=== PATIENT | female | born 1960 | race Caucasian/White ===

== ENCOUNTER → 2016-12-26 | Outpatient (CLI) | payer OTHER ==
--- NOTE | 2016-12-31 13:37 | MAM ---
EXAM DESCRIPTION: 3D Screening BILATERAL CLINICAL HISTORY: 56 years, Female, Screening mammogram COMPARISON: November 23, 2015 TECHNIQUE: CC and MLO digital mammograms with 3-D tomosynthesis. No CAD utilized. FINDINGS: The breast parenchyma is heterogeneously dense which may decrease the sensitivity of mammography. There is no dominant mass nor any suspicious microcalcifications. Benign microcalcifications are present. IMPRESSION: BIRAD CATEGORY: 2 BENIGN FOLLOW-UP: Routine mammography screening. Electronically signed by: Raghu Jay MD 12/31/2016 1:35 PM CDT
== END ==
LOC: MAMMO 09:55
PROVIDERS: ATTEND Family Medicine
DX: Z12.31 Encounter for screening mammogram for malignant neoplasm of breast (principal)
CPT/HCPCS: 77063; G0202

== ENCOUNTER → 2017-02-01 | Outpatient (CLI) | payer BC | END | disposition home or self-care (01) | LOC: GMAM 10:47 | PROVIDERS: ATTEND Family Medicine | DX: E89.0 Postprocedural hypothyroidism (principal) ==

== ENCOUNTER → 2017-03-05 | Outpatient (CLI) | payer BC | END | disposition home or self-care (01) | LOC: GMAM 10:38 | PROVIDERS: ATTEND Family Medicine | DX: E89.0 Postprocedural hypothyroidism (principal) ==

== ENCOUNTER → 2017-04-24 | Outpatient (CLI) | payer BC | END | disposition home or self-care (01) | LOC: GMAM 10:33 | PROVIDERS: ATTEND Family Medicine | DX: E89.0 Postprocedural hypothyroidism (principal) ==

== ENCOUNTER → 2017-06-06 | Outpatient (CLI) | payer BC | END | disposition home or self-care (01) | LOC: GMAM 10:27 | PROVIDERS: ATTEND Family Medicine | DX: E89.0 Postprocedural hypothyroidism (principal) ==

== ENCOUNTER → 2017-07-16 | Outpatient (CLI) | payer BC | LOC: GMAM 15:49 | PROVIDERS: ATTEND Family Medicine | DX: E89.0 Postprocedural hypothyroidism (principal) ==

== ENCOUNTER → 2017-08-14 | Outpatient (CLI) | payer BC | LOC: GMAM 10:45 | PROVIDERS: ATTEND Family Medicine | DX: E89.0 Postprocedural hypothyroidism (principal); E55.9 Vitamin D deficiency, unspecified; E78.5 Hyperlipidemia, unspecified ==

== ENCOUNTER → 2017-08-21 | Outpatient (CLI) | payer BC | END | disposition home or self-care (01) | LOC: GMAM 14:23 | PROVIDERS: ATTEND Family Medicine | DX: E89.0 Postprocedural hypothyroidism (principal); E53.8 Deficiency of other specified B group vitamins ==

== ENCOUNTER → 2017-11-14 | Outpatient (CLI) | payer BC | LOC: GMAM 15:12 | PROVIDERS: ATTEND Family Medicine | DX: E89.0 Postprocedural hypothyroidism (principal) ==

== ENCOUNTER → 2018-02-13 | Outpatient (CLI) | payer BC ==
--- NOTE | 2018-02-14 10:21 | MAM ---
EXAM DESCRIPTION: 3D Screening BILATERAL : Digital Mammography. CLINICAL HISTORY: 57 years Female SCREENING . No complaints. No personal history of breast cancer. Remote family history of breast cancer. Childbirth. Postmenopausal 27 years. Has taken HRT less than 5 years ago but not currently. COMPARISON: Bilateral screening digital breast tomosynthesis 12/26/2016. TECHNIQUE: Bilateral CC and MLO projection full-field images, Digital tomosynthesis mammographic technique. Bilateral digital 2-D full-field MLO images. CAD not utilized. FINDINGS: The breast parenchymal density pattern is: Heterogeneously dense breast tissue, which may obscure small masses. No skin thickening or nipple retraction. Solitary microcalcifications predominantly in the left breast. No new focal, stellate mass or density, focal asymmetry , and no suspicious microcalcifications bilaterally. Stable mammograms compared to prior study. IMPRESSION: Benign exam. BIRAD CATEGORY: 2 BENIGN FINDINGS. RECOMMENDATIONS: FOLLOW UP: Routine digital bilateral screening, one year interval from January 2018. Written communication explaining the IMPRESSION and follow-up, will be mailed to the patient and referring health care provider. According to the [employer], yearly mammograms are recommended starting at age 40 and continuing as long as a woman is in good health. Any breast change noted on a breast self-exam should be reported promptly to the patient's healthcare provider. Breast MRI is recommended for women with an approximately 20-25% or greater lifetime risk of breast cancer, including women with a strong family history of breast or ovarian cancer and women who have been treated for Hodgkin's disease. A negative mammographic report should not delay tissue diagnosis in patients with significant clinical history or physical findings. Extremely dense breast tissue limits the sensitivity of digital mammography. Electronically signed by: King Kyle MD 02/14/2018 10:20 AM CDT
== END ==
LOC: MAMMO 14:30
PROVIDERS: ATTEND Family Medicine
DX: Z12.31 Encounter for screening mammogram for malignant neoplasm of breast (principal)

== ENCOUNTER 2018-03-20 01:57 | Emergency (ER) | payer BC ==
--- NOTE | 2018-03-20 03:27 | CT ---
EXAM DATE: 03/20/2018 2:27 AM CDT. PROCEDURE: CT NECK WITH IV CONTRAST. INDICATION: throat fullness, history of thyroid neoplasia. COMPARISON: None. TECHNIQUE: Axial CT images of the neck were obtained after administration of intravenous contrast. Coronal and sagittal reformats were also obtained. This exam was performed according to our departmental dose-optimization program which includes use of Automated Exposure Control, adjustment of the mA and/or kV according to patient size and/or use of iterative reconstruction technique. FINDINGS: The visualized intracranial contents are unremarkable. The major neck vessels demonstrate normal opacification. Partial opacification of the right maxillary sinus. The mastoid air cells are clear. Enlarged lingual tonsils. The palatine tonsils and the adenoids are unremarkable. No lymphadenopathy. Unremarkable major salivary glands. The thyroid is surgically absent. Lung apices are clear. No acute osseous abnormality. IMPRESSION: Enlarged lingual tonsils. This may be reactive or secondary to neoplasm. Outpatient ENT evaluation or short-term follow-up in three months is recommended. Electronically signed by: Patrick Barillas MD 03/20/2018 3:26 AM CDT
--- NOTE | 2018-03-20 04:01 | ED.PDOC ---
History of Present Illness - General Chief Complaint: GI Problem Stated Complaint: constricting throat Time Seen by Provider: 03/20/18 02:18 Source: patient Exam Limitations: no limitations - History of Present Illness Initial Comments: Patient presents with a fullness in her throat for several months. It has been getting worse. Tonight, she was eating and she could not swallow all of her food. She can swallow saliva but it is difficult for her to swallow a full cup of water or solid food. 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 No other complaints. Timing/Duration: changing over time Severity: moderate Improving Factors: nothing Worsening Factors: eating Associated Symptoms: denies symptoms Allergies/Adverse Reactions: Allergies NO KNOWN ALLERGY Allergy (Verified 03/20/18 04:35) Home Medications: Ambulatory Orders Acetaminophen W/ Codeine [Tylenol W/ CODEINE #3] 1 ea PO Q4H PRN #12 04/24/14 Ibuprofen [Motrin] 600 mg PO TID PRN #15 tab 04/24/14 Levothyroxine Sodium [Synthroid] 0.125 mg PO 0700 04/24/14 Prednisone [Deltasone] 20 mg PO DAILY #5 tab 03/20/18 Review of Systems - Review of Systems Constitutional: States: no symptoms reported EENTM: States: see HPI Respiratory: States: no symptoms reported Cardiology: States: no symptoms reported Gastrointestinal/Abdominal: States: no symptoms reported Genitourinary: States: no symptoms reported Musculoskeletal: States: no symptoms reported Skin: States: no symptoms reported Neurological: States: no symptoms reported Endocrine: States: no symptoms reported Hematologic/Lymphatic: States: no symptoms reported Past Medical History (General) - Patient Medical History Hx Seizures: No Hx Stroke: No Hx Dementia: No Hx Asthma: No Hx of COPD: No Hx Cardiac Disorders: No Hx Congestive Heart Failure: No Hx Pacemaker: No Hx Hypertension: No Hx Thyroid Disease: Yes - thyroidectomy Hx Diabetes: No Hx Gastroesophageal Reflux: No Hx Renal Disease: No Hx Cancer: No Hx of HIV: No Hx Hepatitis C: No Hx MRSA: No Surgical History: Hysterectomy, other - Vaccination History Hx Tetanus, Diphtheria Vaccination: No Hx Influenza Vaccination: No Hx Pneumococcal Vaccination: No - Social History Hx Tobacco Use: No Hx Chewing Tobacco Use: No Hx Alcohol Use: Yes - occ Hx Substance Use: No Hx Substance Use Treatment: No Hx Depression: No Hx Physical Abuse: No Hx Emotional Abuse: No Hx Suspected Abuse: No - Female History Patient : No Family Medical History - Family History Father Living Status: Still Living Hx Cardiac Disease: Yes Paternal Grandparents Living Status: Still Living Hx Family Diabetes: Yes Hx Family Cancer: Yes - breast cancer Physical Exam - Physical Exam General Appearance: Alert Eye Exam: bilateral normal Ears, Nose, Throat: other - Normal except mild TTP at anterior trachea Neck: non-tender, full range of motion, supple Respiratory: lungs clear, normal breath sounds Cardiovascular/Chest: normal peripheral pulses, regular rate, rhythm, no edema Gastrointestinal/Abdominal: normal bowel sounds, non tender Back Exam: normal inspection, no CVA tenderness Extremity: normal range of motion, non-tender, normal inspection 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, no motor/sensory deficits, alert, normal mood/affect, oriented x 3 Skin Exam: normal color Lymphatic: no adenopathy Progress - Progress Progress: 03/20/18 04:02 Laboratory Tests 03/20/18 03/20/18 03/20/18 02:24 02:24 02:25 WBC 8.4 RBC 5.03 Hgb 14.9 Hct 45.3 MCV 90.1 MCH 29.6 MCHC 32.8 L RDW 14.0 Plt Count 305 MPV 8.1 Absolute Neuts (auto) 5.30 Absolute Lymphs (auto) 2.40 Absolute Monos (auto) 0.50 Absolute Eos (auto) 0.10 Absolute Basos (auto) 0.10 Neutrophils % 63.0 Lymphocytes % 28.7 Monocytes % 6.2 Eosinophils % 1.3 Basophils % 0.8 Sodium 139 Potassium 3.8 Chloride 107 Carbon Dioxide 20 L Anion Gap 15.8 BUN 27 H Creatinine 1.12 BUN/Creatinine Ratio 24.1 H Random Glucose 137 H Serum Osmolality 284.8 Calcium 9.6 Total Bilirubin 0.6 AST 23 ALT 26 Alkaline Phosphatase 69 Creatine Kinase 66 CK-MB (CK-2) 1.0 CK-MB (CK-2) % Not Reportable Troponin I < 0.02 Serum Total Protein 7.7 Albumin 4.0 Globulin 3.7 H Albumin/Globulin Ratio 1.1 Thyroxine (T4) 11.79 CT of the soft tissues of the neck showed enlarge lingual lymph nodes and the radiologist suggested follow up with ENT to investigate whether this is reactive or due to neoplasm. Due to her history, she was given the contact information for her former ENT in [place] so she could contact him tomorrow. She was treated with a solumedrol injection and five day course for the LAD and Toradol/phenergan for a headache. Follow up instructions given. Questions were elicited and answered. The patient voiced understanding and agreement with the plan. 03/20/18 05:23 CT head was negative for mass or bleed. Departure - Departure Clinical Impression: LAD (lymphadenopathy), Headache Disposition: Discharge to Home or Self Care Condition: Fair Departure Forms: ED Discharge - Pt. Copy, Patient Portal Self Enrollment Diet: resume usual diet Activity: increase activity as tolerated Referrals: Moise Guajardo MD [Primary Care Provider] - 1-2 Weeks Prescriptions: Prednisone [Deltasone] 20 mg PO DAILY #5 tab Home Medications: Ambulatory Orders Acetaminophen W/ Codeine [Tylenol W/ CODEINE #3] 1 ea PO Q4H PRN #12 04/24/14 Ibuprofen [Motrin] 600 mg PO TID PRN #15 tab 04/24/14 Levothyroxine Sodium [Synthroid] 0.125 mg PO 0700 04/24/14 Prednisone [Deltasone] 20 mg PO DAILY #5 tab 03/20/18 Additional Instructions: See Dr. Dean within the next week. Take prescriptions as directed. Return to the E.R. if you cannot swallow your own saliva. A clear liquid diet is recommended until you see Dr. Dean.
[2018-03-20] MEDS ORDERED: methylPREDNISolone SODIUM SUC 125 MG/2 ML VIAL IV ONE (04:06)
[2018-03-20] MEDS ORDERED: KETOROLAC TROMETHAMINE INJ 30 MG/ML VIAL IV ONE (04:07)
[2018-03-20] MEDS: PROMETHAZINE HCL 25 MG TAB PO ONE ×2 (04:22→04:42)
--- NOTE | 2018-03-20 04:28 | CT ---
CT head without contrast on 03/20/2018 CLINICAL INDICATION: Headache TECHNIQUE: Multiple axial images are obtained throughout the head without the administration of contrast. This exam was performed according to our departmental dose-optimization program, which includes automated exposure control, adjustment of the mA and/or kV according to patient size and/or use of iterative reconstruction technique. Total DLP is 859.97 mGy*cm. COMPARISON: None FINDINGS: Of note, this exam was performed without contrast however shortly following unenhanced CT of the neck and therefore there is contrast present. There is no hydrocephalus. There is no CT evidence of acute infarct. There is no hemorrhage. There are no abnormal extra-axial fluid collections. There is no mass, mass effect or midline shift. Right maxillary sinusitis is noted. No bony abnormality is noted. IMPRESSION: 1. No acute intracranial abnormality. 2. Right maxillary sinusitis. Electronically signed by: Robin Estrada 03/20/2018 4:27 AM CDT
[2018-03-20] MEDS ORDERED: PROMETHAZINE HCL INJ 12.5 MG in SODIUM CHLORIDE 0.9% 50ML 50 ML IVPB ONE (04:43)
[2018-03-20] MEDS ORDERED: PROMETHAZINE HCL INJ 25 MG/ML VIAL ONE (04:44)
[2018-03-20] MEDS ORDERED: SODIUM CHLORIDE 0.9% 50ML 50 ML ONE (04:44)
[2018-03-20 05:37] VITALS: BP 125/83; TEMP 97; O2SAT 94
== END 2018-03-20 05:38 | disposition home or self-care (01) ==
LOC: ER 01:57
DX: R59.0 Localized enlarged lymph nodes (principal); R51 Headache; R13.10 Dysphagia, unspecified; E89.0 Postprocedural hypothyroidism

== ENCOUNTER → 2018-03-22 | Outpatient (CLI) | payer BC | LOC: GMAM 11:36 | PROVIDERS: ATTEND Family Medicine | DX: E53.8 Deficiency of other specified B group vitamins (principal); E89.0 Postprocedural hypothyroidism; E55.9 Vitamin D deficiency, unspecified ==

== ENCOUNTER → 2019-06-18 | Outpatient (CLI) | payer BC ==
--- NOTE | 2019-06-19 20:02 | MAM ---
EXAM DESCRIPTION: 3D Screening BILATERAL : Digital Mammography. CLINICAL HISTORY: 58 years Female ANNUAL SCREENING . No complaints. No personal history of breast cancer. Remote family history of breast cancer. Menarche age 11. Childbirth age 19. Hysterectomy age 36. HRT 5 or more years ago. Lifetime risk of developing breast cancer (Tyrer-Cuzick model)(%): 6.6. COMPARISON: Bilateral screening digital breast tomosynthesis January 2018 and December 2016. TECHNIQUE: Bilateral CC and MLO projection full-field images, digital tomosynthesis mammographic technique. Bilateral digital 2-D full-field MLO images. CAD available for 2-D images. FINDINGS: The breast parenchymal density pattern is: Scattered areas of fibroglandular density. No skin thickening or nipple retraction. Bilateral vascular calcifications. Bilateral solitary microcalcifications. Minimal focal asymmetry 9:00 sector adjacent to the right nipple compared to prior studies.. No new focal, stellate mass or density, focal asymmetry , and no suspicious microcalcifications left breast. IMPRESSION: BI-RADS CATEGORY: 0 - INCOMPLETE- Need additional imaging evaluation. FOLLOW-UP: Recall for additional imaging: Directed right breast ultrasound.. Written communication concerning the IMPRESSION and Follow-up, will be mailed to the patient and referring health care provider. Electronically signed by: King Kyle MD 06/19/2019 8:00 PM LIQUID COMPOUNDER
== END ==
LOC: MAMMO 13:09
PROVIDERS: ATTEND Family Medicine
DX: Z12.31 Encounter for screening mammogram for malignant neoplasm of breast (principal)

== ENCOUNTER → 2019-07-07 | Outpatient (CLI) | payer BC ==
--- NOTE | 2019-07-07 17:48 | US ---
EXAM DESCRIPTION: Breast,Right: Ultrasound CLINICAL HISTORY: 58 yearsFemaleABNORMAL MAMMO . Focal asymmetry abutting the right breast nipple. No personal history of breast cancer. No complaints. Lifetime risk of developing breast cancer (Tyrer-Cuzick model)(%): 6.6. COMPARISON: Bilateral screening digital breast tomosynthesis June 18. TECHNIQUE: Transcutaneous scanning of the right breast utilizing black-scale and Doppler modes. Scanning performed by the plate fitter ; observation by Dr. Kyle. FINDINGS: Ultrasound: Scanning of the tissues around the right breast. Emphasis at the 9:00 position 2 cm from the nipple. Mixture of fibroglandular and fatty tissues. Anechoic structures mostly circumscribed in the region of interest. The largest measures 4.0 x 4.9 x 4.4 mm. Not vascular. Wider than tall orientation. Posterior acoustic enhancement. No overlying skin changes. No large calcifications. No dominant solid mass. Consistent with cysts associated with fibroglandular tissues. IMPRESSION: Benign exam. Cysts associated with fibroglandular tissues. BIRAD CATEGORY: 2 BENIGN FINDINGS. RECOMMENDATIONS: FOLLOW UP: Routine digital bilateral mammographic screening, one year interval from May 2019. Written communication explaining the IMPRESSION and follow-up, will be mailed to the patient and referring health care provider. The FINDINGS and the FOLLOW-UP plan were reviewed in person with the patient after the examination. According to the [employer], yearly mammograms are recommended starting at age 40 and continuing as long as a woman is in good health. Any breast change noted on a breast self-exam should be reported promptly to the patient's healthcare provider. Breast MRI is recommended for women with an approximately 20-25% or greater lifetime risk of breast cancer, including women with a strong family history of breast or ovarian cancer and women who have been treated for Hodgkin's disease. A negative mammographic report should not delay tissue diagnosis in patients with significant clinical history or physical findings. Extremely dense breast tissue limits the sensitivity of digital mammography. Electronically signed by: King Kyle MD 07/07/2019 5:46 PM CAD DRAFTSMAN
== END ==
LOC: MAMMO 14:01
PROVIDERS: ATTEND Family Medicine
DX: R92.8 Other abnormal and inconclusive findings on diagnostic imaging of breast (principal)

== ENCOUNTER → 2019-09-11 | Outpatient (CLI) | payer BC | LOC: GMAM 11:27 | PROVIDERS: ATTEND Family Medicine | DX: E53.8 Deficiency of other specified B group vitamins (principal); E89.0 Postprocedural hypothyroidism; E55.9 Vitamin D deficiency, unspecified ==

== ENCOUNTER → 2020-02-26 | Outpatient (CLI) | payer BC | LOC: GMAM 10:36 | PROVIDERS: ATTEND Family Medicine | DX: E04.1 Nontoxic single thyroid nodule (principal); E78.5 Hyperlipidemia, unspecified ==

== ENCOUNTER → 2020-04-08 | Outpatient (CLI) | payer BC | LOC: GMAM 10:34 | PROVIDERS: ATTEND Family Medicine | DX: E04.1 Nontoxic single thyroid nodule (principal) ==